=== PATIENT | male | born 1975 | race Caucasian/White ===

== ENCOUNTER 2020-07-30 20:44 | Emergency (ER) | payer BC ==
[~2020-07-30] VITALS: Ht 190.5 cm; Wt 150.5 kg
[2020-07-30 21:07] VITALS: BP 173/94
--- NOTE | 2020-07-30 21:09 | NUR ---
PT C/O OF PAIN AND LACERATION IN RING FINGER OF LEFT HAND. 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 WAS WEARING GLOVE BUT FINGER STILL HAS LACERATION. UNKNOWN TETANUS SHOT LAST DATE. CMS IN TIP OF FINGER.
--- NOTE | 2020-07-30 21:18 | NUR ---
CUT OFF PT BANDAGE, BLEEDING HAS BEEN CONTROLLED
--- NOTE | 2020-07-30 21:26 | NUR ---
GAVE REPORT TO ASHLEY GARCIA
[2020-07-30] MEDS ORDERED: DIPH,PERTUSS(ACELL),TET VAC/PF 0.5 ML IM-VACC ONE ×2 (22:00→22:17)
== END 2020-07-30 22:52 | disposition home or self-care (01) ==
LOC: ED 22:48
DX: S61.215A Laceration without foreign body of left ring finger without damage to nail, initial encounter (principal); I10 Essential (primary) hypertension; X58.XXXA Exposure to other specified factors, initial encounter; Y93.89 Activity, other specified; Y92.89 Other specified places as the place of occurrence of the external cause; Y99.8 Other external cause status
CPT/HCPCS: 90471; 90715; 99283